=== PATIENT | female | born 1980 | race Caucasian/White ===

== ENCOUNTER 2016-10-01 23:27 | Emergency (ER) | payer OTHER | END 2016-10-01 23:30 | disposition home or self-care (01) | LOC: ER 23:27 | DX: K08.89 Other specified disorders of teeth and supporting structures (principal); F11.90 Opioid use, unspecified, uncomplicated; F17.200 Nicotine dependence, unspecified, uncomplicated; F31.9 Bipolar disorder, unspecified; Z88.8 Allergy status to other drugs, medicaments and biological substances | CPT/HCPCS: 96372; 99283; J1885 ==